=== PATIENT | female | born 1960 | race African-American/Black ===

== ENCOUNTER 2018-08-27 22:33 | Observation (INO) | payer OTHER ==
[2018-08-27] MEDS ORDERED: fentaNYL 100 MCG/2 ML INJ IVP ONE (22:51)
[2018-08-27] MEDS ORDERED: ONDANSETRON 4 MG/2 ML VIAL IVP ONE (22:51)
[2018-08-27] MEDS ORDERED: NS 1,000 ML IV ONE (22:51)
[2018-08-27] MEDS ORDERED: fentaNYL 100 MCG/2 ML INJ ONE (22:52)
--- NOTE | 2018-08-27 22:55 | EDPHY ---
H & P Stated Complaint: mid abd pain and vomiting Time Seen by Provider: 08/27/18 22:55 HPI/ROS: HPI CHIEF COMPLAINT: Abdominal pain. HISTORY OF PRESENT ILLNESS: Patient is a 57-year-old female, presents emergency room with abdominal pain. She reports started 2 hr ago. She reports she had chicken, beans, and tomatoes for dinner. No history of gallbladder disease. She states approximately 2 hr ago she developed some epigastric abdominal pain. Describes it as "somebody twisting her intestines" she denies any chest pain or shortness of breath, denies fever, denies diarrhea. She reports to me she has never had this before. She did vomit 1 time. She believes there was some blood in it. She describes it as bright red blood. However she did eat tomatoes for dinner. Patient states she just recently relocated from [facility] to [place]. Past Medical History: Significant medical history for hypertension, diabetes, non-insulin dependent diabetic Past Surgical History: Denies significant surgical history Social History: Denies drugs alcohol tobacco. Family History: Noncontributory ROS REVIEW OF SYSTEMS: 10 Systems were reviewed and negative with the exception of the elements mentioned in the history of present illness. Exam Constitutional triage nursing summary reviewed, vital signs reviewed, awake/ alert. Eyes normal conjunctivae and sclera, EOMI, PERRLA. HENT normal inspection, atraumatic, moist mucus membranes, no epistaxis, neck supple/ no meningismus, no raccoon eyes. Respiratory clear to auscultation bilaterally, normal breath sounds, no respiratory distress, no wheezing. Cardiovascular rate normal, regular rhythm, no murmur, no edema, distal pulses normal. Gastrointestinal mild tender palpation right upper quadrant epigastric, no rebound, no guarding, normal bowel sounds, no distension, no pulsatile mass. Genitourinary no CVA tenderness. Musculoskeletal no midline vertebral tenderness, full range of motion, no calf swelling, no tenderness of extremities, no meningismus, good pulses, neurovascularly intact. Skin pink, warm, & dry, no rash, skin atraumatic. Neurologic awake, alert and oriented x 3, AAOx3, moves all 4 extremities equally, motor intact, sensory intact, CN II-XII intact, normal cerebellar, normal vision, normal speech. Psychiatric normal mood/affect. Heme/Lymph/Immune no lymphadenopathy. Differential Diagnosis: Differential diagnosis includes but is not limited to and in no particular order: Bowel obstruction, appendicitis, gallbladder disease, diverticulitis, colitis, enteritis, perforated viscus, gastritis, GERD , esophagitis, urinary tract infection, pyelonephritis, kidney stones Medical Decision Making: Plan for this patient IV establishment IV fluid bolus , IV Zofran 4 mg for nausea, IV fentanyl 50 mcg for pain control, basic labs, ultrasound right upper quadrant Re-evaluation: Ultrasound of the right upper quadrant called to me by Dr. Mcmillan. Shows fatty liver. Normal gallbladder. Blood work reviewed reassuring. Re-examination 12:17 a.m. No chest pain or shortness of breath abdominal pain has resolved with IV fentanyl. She is receiving a 2nd L fluid. Glucose was slightly high at 192. Patient pending CT scan abdomen pelvis with IV contrast CT scan abdomen pelvis with IV contrast faxed to me by direct Radiology at time 12:50 a.m. This shows mom multiple mildly dilated loops of small bowel and several in the left upper and left lower quadrant mild wall thickening and mild adjacent edema likely enteritis. No bowel obstruction. Diverticulosis Fatty liver History of suffer reflux Prominent nodular uterus likely leiomyoma EKG interpretation by me on record in [facility] system. Impression time of EKG 0047, sinus rhythm rate of 97, T-wave flattening inferior leads to 3 AVF but no acute ischemia. Patient re-evaluated this time 4:16 a.m.. Patient continues to have no abdominal pain. Denies any chest pain or shortness of breath. No abdominal pain at this time. She did vomit [address] scan. I have reviewed her CT scan. I have reviewed her labs. EKG interpretation by me on record in [facility] system. Impression time of EKG 5:50 a.m., sinus rhythm rate of 85 no signs of acute ischemia. 0610: Patient re-evaluated this time she is resting comfortably. Her abdomen does not hurt her. She has not had any vomiting further in the emergency room except [address] scan[address] She p.o. Challenge well at this time. Patient has been here for close to 8 hr. She denies any chest pain or shortness of breath. She is repeat EKG that is normal. She has a repeat troponin that is negative She did not have any chest pain or shortness of breath. Her CT scan shows fatty liver, additionally small bowel loops that are and appeared to be enteritis. She does tell me that yesterday she had diarrhea. We discussed return precautions with her she understands return to the emergency room she develops worsening abdominal pain, fever, vomiting or not doing well. She is comfortable this plan. Additionally her glucose was elevated here she is diabetic I do recommend she follows up closely with primary care doctor about her hyperglycemia. She stay away from sugary drinks, low carb diet, and return if worse. She is comfortable this plan. Additionally on her CT scan were able to see what appeared to be uterine fibroids. I do recommend she follows up with OBGYN about this. 0633: Patient re-evaluated this time she PO challenge but now developed worsening abdominal pain and nausea. She complains of epigastric abdominal pain and left-sided abdominal pain she states this is very similar to when she came in. She is very hesitant about going home and she is requesting be observed today for ongoing abdominal pain. She additionally would like another dose of pain medicine. Patient re-evaluated she again states she has worsening abdominal pain after she p.o. Challenged here and feel more comfortable being observed in the in the hospital. It is noted she has been in the emergency room for over 8 hr 3 L of fluid multiple rounds of antiemetics and multiple rounds of pain medicine. She was doing well however at p.o. Challenge at discharge she complains of worsening pain. She is requesting admission. Plan for patient admit to the hospitalist service for further observation most likely enteritis. Abdomen mildly tender on the left side, no peritoneal signs. Dr. Galvan accepts admission. Source: Patient - Personal History Current Tetanus/Diphtheria Vaccine: Yes Current Tetanus Diphtheria and Acellular Pertussis (TDAP): Yes - Medical/Surgical History Hx Diabetes: Yes Hx Cardiac Disease: Yes Other PMH: HTN, DM1, cardiomyopathy, tonsilectomy, - Social History Smoking Status: Never smoked Constitutional: Initial Vital Signs Temperature (C) 36.4 C 08/27/18 22:37 Heart Rate 107 H 08/27/18 22:37 Respiratory Rate 18 08/27/18 22:37 Blood Pressure 133/90 H 08/27/18 22:37 O2 Sat (%) 96 08/27/18 22:37 O2 Delivery Mode Room Air Allergies/Adverse Reactions: No Known Allergies Allergy (Unverified 08/27/18 22:41) Home Medications: Medication Instructions Recorded Metformin HCl [Metformin 1000 mg] 1,000 mg PO BIDMEAL 08/27/18 amLODIPine BESYLATE [Norvasc 5 mg 5 mg PO DAILY 08/27/18 (*)] Herbals/Supplements -Info Only 1 ea PO DAILY 08/28/18 Lisinopril [Zestril 40 mg (*)] 40 mg PO DAILY 08/28/18 Medical Decision Making - Data Points Laboratory Results: Laboratory Results 08/27/18 22:54 08/27/18 22:54 Medications Given: Discontinued Medications Fentanyl (Sublimaze) 50 mcg IVP EDNOW ONE Stop: 08/27/18 22:52 Last Admin: 08/27/18 22:55 Dose: 50 mcg Hydromorphone HCl (Dilaudid) 0.5 mg IVP EDNOW ONE Stop: 08/28/18 06:35 Last Admin: 08/28/18 06:37 Dose: 0.5 mg Sodium Chloride (Ns) 1,000 mls @ 0 mls/hr IV EDNOW ONE; Wide Open PRN Reason: Protocol Stop: 08/27/18 22:52 Last Admin: 08/27/18 22:54 Dose: 1,000 mls Sodium Chloride (Ns) 1,000 mls @ 0 mls/hr IV ONCE ONE PRN Reason: Wide Open Stop: 08/28/18 00:17 Last Admin: 08/28/18 00:53 Dose: 1,000 mls Sodium Chloride (Ns) 1,000 mls @ 0 mls/hr IV ONCE ONE PRN Reason: Wide Open Stop: 08/28/18 04:15 Last Admin: 08/28/18 04:21 Dose: 1,000 mls Sodium Chloride (Ns) 1,000 mls @ 100 mls/hr IV CONT MAXX Stop: 02/24/19 06:44 Last Admin: 08/28/18 08:08 Dose: 1,000 mls Insulin Human Regular (Humulin R) 0 unit SC ACHS MAXX PRN Reason: Protocol Stop: 02/24/19 17:29 Last Admin: 08/28/18 16:39 Dose: Not Given Ondansetron HCl (Zofran) 4 mg IVP EDNOW ONE Stop: 08/27/18 22:52 Last Admin: 08/27/18 22:53 Dose: 4 mg Point of Care Test Results: Chemistry 08/28/18 08/27/18 05:58 23:37 POC Troponin I 0.04 ng/mL ng/mL 0.00 ng/mL ng/mL (0.00-0.08) (0.00-0.08) Departure - Departure Disposition: [facility] Inpatient Acute Clinical Impression: Abdominal pain Qualifiers: Abdominal location: upper abdomen, unspecified Qualified Code(s): R10.10 - Upper abdominal pain, unspecified Condition: Good
[2018-08-27 23:08] LABS: PLATELET COUNT 324 10^3/uL (150-400)
[2018-08-27 23:17] LABS: INR 0.95 (0.83-1.16); PROTIME(PATIENT) 12.3 SEC (12.0-15.0)
[2018-08-28] MEDS ORDERED: IOPAMIDOL (ISOVUE-300) 100 ML BTL ONE (00:04)
[2018-08-28] MEDS ORDERED: NS 1,000 ML IV ONE ×2 (00:16→04:14)
[2018-08-28] MEDS ORDERED: HYDROmorphONE/DILAUDID 2 MG/ML INJ IVP ONE (06:34)
[2018-08-28] MEDS ORDERED: HYDROmorphONE/DILAUDID 1 MG/ML INJ IVP PRN (06:42)
[2018-08-28] MEDS ORDERED: ONDANSETRON DISINTEGRATING 4 MG TAB PO PRN (06:42)
[2018-08-28] MEDS ORDERED: PROMETHAZINE HCL 25 MG/ML INJ IVP PRN (06:42)
[2018-08-28] MEDS ORDERED: ACETAMINOPHEN 325 MG TAB PO PRN (06:42)
[2018-08-28] MEDS ORDERED: ONDANSETRON 4 MG/2 ML VIAL IVP PRN (06:42)
[2018-08-28] MEDS ORDERED: NS 1,000 ML IV SCH (06:45)
--- NOTE | 2018-08-28 07:07 | PDGENHP ---
History and Physical - Chief Complaint Abdominal pain - History of Present Illness 57 yo F w/ hx of DM presents with abdominal pain and nausea. Her symptoms started yesterday evening. She denies recent illness, suspicious food intake, or recent antibiotics. 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 She has had persistent abdominal pain and nausea for about 10 hours now. She attempted to drink some fluids in the ED but her pain and nausea returned. A CT scan in the ED is suggestive of enteritis. Her abdominal exam is soft and benign. She is being admitted for observation. Case discussed with ED physician Dr. Muniz; records reviewed and summarized above. History Information - Allergies/Home Medication List Allergies/Adverse Reactions: No Known Allergies Allergy (Unverified 08/27/18 22:41) Home Medications: 2 Bp Medicaitons 08/27/18 [Last Taken Unknown] Metformin HCl 08/27/18 [Last Taken Unknown] I have personally reviewed and updated: family history, medical history - Past Medical History diabetes type 2 - Surgical History Reports: no pertinent surgical hx - Family History Positive for: diabetes type II - Social History Smoking Status: Never smoked Review of Systems Review of Systems: ROS: 10pt was reviewed & negative except for what was stated in HPI & below Physical Exam Physical Exam: Temp Pulse Resp BP Pulse Ox 36.5 C 86 16 153/101 H 90 L 08/28/18 06:10 08/28/18 06:10 08/28/18 06:10 08/28/18 06:10 08/28/18 06:10 Constitutional: no apparent distress, obese Eyes: PERRL, EOMI Ears, Nose, Mouth, Throat: moist mucous membranes, no oral mucosal ulcers Cardiovascular: regular rate and rhythym, no murmur, rub, or gallop Respiratory: no respiratory distress, clear to auscultation Gastrointestinal: normoactive bowel sounds, soft, non-tender abdomen Skin: warm, normal color Musculoskeletal: full muscle strength, no muscle tenderness Neurologic: AAOx3, CN II-XII Intact Psychiatric: interacting appropriately, not anxious Lab Data & Imaging Review 08/27/18 22:54 08/27/18 22:54 WBC 10.76 10^3/uL (3.80-9.50) H 08/27/18 22:54 RBC 4.53 10^6/uL (4.18-5.33) 08/27/18 22:54 Hgb 13.3 g/dL (12.6-16.3) 08/27/18 22:54 Hct 39.4 % (38.0-47.0) 08/27/18 22:54 MCV 87.0 fL (81.5-99.8) 08/27/18 22:54 MCH 29.4 pg (27.9-34.1) 08/27/18 22:54 MCHC 33.8 g/dL (32.4-36.7) 08/27/18 22:54 RDW 13.1 % (11.5-15.2) 08/27/18 22:54 Plt Count 324 10^3/uL (150-400) 08/27/18 22:54 MPV 9.2 fL (8.7-11.7) 08/27/18 22:54 Neut % (Auto) 56.7 % (39.3-74.2) 08/27/18 22:54 Lymph % (Auto) 31.6 % (15.0-45.0) 08/27/18 22:54 [place] % (Auto) 8.3 % (4.5-13.0) 08/27/18 22:54 Eos % (Auto) 2.7 % (0.6-7.6) 08/27/18 22:54 Baso % (Auto) 0.5 % (0.3-1.7) 08/27/18 22:54 Nucleat RBC Rel Count 0.0 % (0.0-0.2) 08/27/18 22:54 Absolute Neuts (auto) 6.11 10^3/uL (1.70-6.50) 08/27/18 22:54 Absolute Lymphs (auto) 3.40 10^3/uL (1.00-3.00) H 08/27/18 22:54 Absolute Monos (auto) 0.89 10^3/uL (0.30-0.80) H 08/27/18 22:54 Absolute Eos (auto) 0.29 10^3/uL (0.03-0.40) 08/27/18 22:54 Absolute Basos (auto) 0.05 10^3/uL (0.02-0.10) 08/27/18 22:54 Absolute Nucleated RBC 0.00 10^3/uL (0-0.01) 08/27/18 22:54 Immature Gran % 0.2 % (0.0-1.1) 08/27/18 22:54 Immature Gran # 0.02 10^3/uL (0.00-0.10) 08/27/18 22:54 PT 12.3 SEC (12.0-15.0) 08/27/18 22:54 INR 0.95 (0.83-1.16) 08/27/18 22:54 APTT 27.2 SEC (23.0-38.0) 08/27/18 22:54 Sodium 137 mEq/L (135-145) 08/27/18 22:54 Potassium 4.1 mEq/L (3.5-5.2) 08/27/18 22:54 Chloride 103 mEq/L (97-110) 08/27/18 22:54 Carbon Dioxide 23 mEq/l (22-31) 08/27/18 22:54 Anion Gap 11 mEq/L (6-14) 08/27/18 22:54 BUN 22 mg/dL (7-23) 08/27/18 22:54 Creatinine 0.9 mg/dL (0.6-1.0) 08/27/18 22:54 Estimated GFR > 60 08/27/18 22:54 Glucose 192 mg/dL (70-100) H 08/27/18 22:54 Calcium 9.8 mg/dL (8.5-10.4) 08/27/18 22:54 Total Bilirubin 0.8 mg/dL (0.1-1.4) 08/27/18 22:54 Conjugated Bilirubin 0.2 mg/dL (0.0-0.5) 08/27/18 22:54 Unconjugated Bilirubin 0.6 mg/dL (0.0-1.1) 08/27/18 22:54 AST 21 IU/L (14-46) 08/27/18 22:54 ALT 26 IU/L (9-52) 08/27/18 22:54 Alkaline Phosphatase 91 IU/L (38-126) 08/27/18 22:54 POC Troponin I 0.04 ng/mL (0.00-0.08) 08/28/18 05:58 Total Protein 8.0 g/dL (6.3-8.2) 08/27/18 22:54 Albumin 4.6 g/dL (3.5-5.0) 08/27/18 22:54 Lipase 91 IU/L (23-300) 08/27/18 22:54 Urine Color YELLOW 08/28/18 01:03 Urine Appearance CLEAR 08/28/18 01:03 Urine pH 5.0 (5.0-7.5) 08/28/18 01:03 Ur Specific [place] > 1.035 (1.002-1.030) H 08/28/18 01:03 Urine Protein NEGATIVE (NEGATIVE) 08/28/18 01:03 Urine Ketones NEGATIVE (NEGATIVE) 08/28/18 01:03 Urine Blood NEGATIVE (NEGATIVE) 08/28/18 01:03 Urine Nitrate NEGATIVE (NEGATIVE) 08/28/18 01:03 Urine Bilirubin NEGATIVE (NEGATIVE) 08/28/18 01:03 Urine Urobilinogen NEGATIVE EU (0.2-1.0) 08/28/18 01:03 Ur Leukocyte Esterase NEGATIVE (NEGATIVE) 08/28/18 01:03 Urine Glucose NEGATIVE (NEGATIVE) 08/28/18 01:03 Imaging Review: Imaging Impressions Abdomen Ultrasound 08/27/18 23:02 Impression: 1. No cholelithiasis or biliary ductal dilation. 2. Hepatic steatosis with mild hepatomegaly. Findings discussed with Chris Bowden MD at 23:52 hour, 08/27/2018. Assessment & Plan Assessment: 57 yo F w/ DM presents with enteritis. Plan: 1. Enteritis - Presents with abdominal pain and nausea for one day. CT scan ( personally reviewed/interpreted) suggestive of enteritis. - Admit for observation - Clear liquid diet, ADAT, mIVF - Pain control, anti-emetics PRN - GI PCR if diarrhea develops 2. DM - On oral therapy only as an outpatient. - Continue oral medications pending reconciliation Diet - Clears, ADAT, mIVF Code - Full Ppx - SCDs Dispo - Admit under observation status
[2018-08-28] MEDS ORDERED: D50W 25 GM/50 ML SYR IVP PRN (13:17)
[2018-08-28 15:51] VITALS: BP 151/91
[2018-08-28] MEDS ORDERED: INSULIN REGULAR HUMAN 100 UNIT/ML UNIT SC SCH (17:30)
--- NOTE | 2018-08-29 05:08 | GDS ---
[f rep st] DISCHARGE SUMMARY PRIMARY CARE PROVIDER: [facility]. DISCHARGE DIAGNOSIS: Enteritis. HISTORY OF PRESENT ILLNESS: The patient is a pleasant 57-year-old female with a past medical history of diabetes mellitus type 2 and hypertension who presented to the [facility] Room after developing severe abdominal cramping. On CT imaging, she was found have evidence of en teritis. She does state she started to feel ill after having a meal. She did have diarrhea for less than 24 hours prior to coming to the hospital, but has not had any further diarrhea. No nausea or v omiting either. HOSPITAL COURSE: She improved with bowel rest and her diet was gradually advanced throughout the day today, which she tolerated fine without the need for pain medications. Her symptoms overall seemed to have just subsided on their own and she felt comfortable with the discharge home today. I discuss ed her case with her nurse and we decided we would watch for another 30-60 minutes as she just comple darlene an evening meal which was of soft to regular consistency and if this goes fine without any discom fort, then she could go ahead and plan on discharging home. No changes were made to her diabetes or antihypertensive medication regimen at the time of discharge. DISCHARGE PHYSICAL EXAMINATION: VITAL SIGNS: Temperature 36.6, blood pressure 137/85, heart rate 81 , respirations 16, satting 97% on room air. GENERAL: Patient appears comfortable. She is awake, al ert, conversant, no acute distress. HEART: Regular rate and rhythm. No murmurs. LUNGS: Clear on auscultation with normal respiratory effort. ABDOMEN: Soft, nontender, nondistended. Normoactive b owel sounds. : No Oneal catheter in place. EXTREMITIES: No significant pitting edema. NOTABLE STUDIES: CT abdomen 08/27/2018, showed moderate hepatic steatosis. No CT evidence of append icitis, abscess, or bowel obstruction. Fluid-filled loops of small bowel with mild distention sugges tive of enteritis. Incidental fibroid anterior aspect lower uterine segment with retroflexed uterus. DISCHARGE MEDICATIONS: 1. Metformin 1000 mg twice a day. 2. Amlodipine 5 mg daily. 3. Lisinopril 40 mg daily. DISCHARGE INSTRUCTIONS: Instructed her to return to the emergency room should she have any recurrenc e of her symptoms. Otherwise, I think she can schedule a followup as previously scheduled at the [facility]. /[id number]/MODL
--- NOTE | 2018-09-01 08:53 | CPEKG ---
Test Reason : Blood Pressure : / mmHG Vent. Rate : 097 BPM Atrial Rate : 097 BPM P-R Int : 149 ms QRS Dur : 083 ms QT Int : 346 ms P-R-T Axes : 054 063 -19 degrees QTc Int : 440 ms Sinus rhythm Borderline T abnormalities, inferior leads Confirmed by Jamal Bhandari ([id number]) on 09/01/2018 8:52:57 AM Referred By: Carlos Eduardo Galvan Confirmed By:Jamal Bhandari
--- NOTE | 2018-09-01 08:55 | CPEKG ---
Test Reason : Blood Pressure : / mmHG Vent. Rate : 085 BPM Atrial Rate : 084 BPM P-R Int : 170 ms QRS Dur : 089 ms QT Int : 393 ms P-R-T Axes : 062 053 -05 degrees QTc Int : 468 ms Sinus rhythm Confirmed by Jamal Bhandari ([id number]) on 09/01/2018 8:55:06 AM Referred By: Carlos Eduardo Galvan Confirmed By:Jamal Bhandari
== END 2018-08-28 19:20 | disposition home or self-care (01) ==
LOC: F3E 08-28 07:59
PROVIDERS: ADMIT Student in an Organized Health Care Education/Training Program; ATTEND Student in an Organized Health Care Education/Training Program
DX: K52.9 Noninfective gastroenteritis and colitis, unspecified (principal); I10 Essential (primary) hypertension; E11.9 Type 2 diabetes mellitus without complications; K76.0 Fatty (change of) liver, not elsewhere classified; R16.0 Hepatomegaly, not elsewhere classified; E86.9 Volume depletion, unspecified
CPT/HCPCS: 74177; 76705; 93005; 96361; 96372; 96374; 96375; 99285; G0378; 84484-ER; J1170; J2405; J3010; Q9967